=== PATIENT | female | born 1980 | race Caucasian/White ===

== ENCOUNTER 2016-09-11 16:48 | Emergency (ER) | payer OTHER ==
--- NOTE | ~2016-09-11 | CT4 ---
[facility] A Service of [facility] & [facility] RADIOLOGY TEXT RESULTS PATIENT: ESTRADA CLARKE LOCATION: SED : 80 UNIT #: [id number] AGE: [address]: SUHAS RECINOS SEX: F ORDER DR: [id number] [place] [id number] E MR#: [id number] #: [id number] NAME: ESTRADA CLARKE. : 1980 SEX: F STUDY DATE/TIME: 09/11/2016 17:17 UNIT: SED ROOM: STUDY DESCRIPTION: CT Abd and Pelv Wo Cont Attending Physician: Sage Recinos Referring Physician: Abdulkadir Calabrese M.D. Ordering Physician: Sage Recinos Primary Care Physician: No Primary Care Physician MEDICAL IMAGING REPORT This report is preliminary unless electronic signature is present. EXAM CT abdomen and pelvis without contrast; 09/11/2016. HISTORY 36-year-old female with right flank pain and fever for [address] abdomen and pelvis, 12/14/07, and 02/06/2007. TECHNIQUE Helical scan performed through the abdomen and pelvis without oral or IV contrast. Coronal and sagittal reformatted images. This CT exam was performed with one or more of the following radiation dose reduction techniques: automatic exposure control, adjustment of mA and/or kV according to patient size, and iterative reconstruction. FINDINGS Visualized lung bases are unremarkable. The liver, spleen, pancreas, and both adrenal glands are within normal limits. Gallbladder surgically absent. Bilateral nephrocalcinosis is again noted with multiple bilateral nonobstructing, intrarenal calculi. No obstructing ureteral stones. However, there is minimal prominence of the right ureter and there is mild right perinephric inflammatory stranding. The findings may suggest a recently passed right-sided urinary tract stone. No stones are seen within the urinary bladder. Abdominal aorta normal in course and caliber. Small bowel is unremarkable without obstruction. Appendix is surgically absent. Colon unremarkable. No free fluid or free air in the abdomen. The urinary bladder, uterus, and adnexa are unremarkable. Trace amount of free pelvic fluid, likely physiologic. No acute bony abnormality. [facility]. [facility] A Service of [facility] & [facility] RADIOLOGY TEXT RESULTS PATIENT: ESTRADA CLARKE LOCATION: [facility] [place] : [birth year] UNIT #: [id number] AGE: [address]: SUHAS RECINOS SEX: F ORDER DR: IMPRESSION 1. Bilateral nephrocalcinosis with multiple nonobstructing bilateral intrarenal calculi. No definite obstructing ureteral stones identified. However, there is mild prominence of the right ureter, and mild right perinephric inflammatory stranding. This could suggest a recently passed right-sided urinary tract stone. No stones are seen within urinary bladder. Superimposed right-sided pyelonephritis s not excluded on this unenhanced exam. 2. Status post cholecystectomy and appendectomy. 3. Trace free pelvic fluid, likely physiologic. Dictated by... Man Malave M.D. THIS IS AN ELECTRONICALLY VERIFIED REPORT Man Malave M.D. at 09/12/2016 6:13 PM [email or web address] TD: 09/11/2016 20:52 JOB #: [id number] MEDICAL IMAGING REPORT Page 1 of 1
[~2016-09-11 16:48] MED LIST: ALLEVE; BACTRIM DS TABL1 TAB PO; CERTAGEN PO; K-DUR20 ME1 PO; KETOPROFEN PO; NAPROXEN PO; NO MEDICATIONS; PRENATAL MULITV1 TAB PO
[2016-09-11 17:04] LABS: URINE SOURCE CLEAN CATCH
[2016-09-11 17:07] LABS: URINE BILIRUBIN NEG (NEG); URINE BLOOD 2+ (NEG); URINE COLOR YELLOW; URINE GLUCOSE NEG (NORM); URINE KETONE NEG (NEG); URINE LEUKOCYTE ESTERASE 1+ (NEG); URINE NITRATE NEG (NEG); URINE PROTEIN NEG (NEG)
[2016-09-11 17:08] LABS: MICRO INDICATED? YES; URINE APPEARANCE SL HAZY
[2016-09-11 17:11] LABS: URINE BACTERIA 2+ (NEG); URINE SQUAMOUS EPITHELIAL CELL MODERATE /[HPF]; URINE TRANSITIONAL EPI CELLS OCCAS /[HPF]
[2016-09-11 17:28] LABS: BASOPHIL# 0.1 X10e3 (0-0.3); BASOPHIL% 0.4 % (0-2.5); DIFF IND NO; EOSINOPHIL% 0.1 % (0.0-7.0); HEMATOCRIT 36.9 % (35.0-45.0); HEMOGLOBIN 12.7 gm/dL (12.0-16.0); LYMPHOCYTE# 0.8 X10e3 (1.0-3.5); LYMPHOCYTE% 6.2 % (17.0-45.0); MEAN CELL VOLUME 91.1 FL (83-96); MEAN CORPUSCULAR HEMOGLOBIN 31.2 PG (28-34); MEAN CORPUSCULAR HGB CONC 34.3 g/dL (30-36); MEAN PLATELET VOLUME 8.6 FL (6.5-11.5); MONOCYTE# 0.9 X10e3 (0-1.0); MONOCYTE% 6.7 % (3.0-12.0); NEUTROPHIL# 11.7 X10e3 (1.5-7.1); NEUTROPHIL% 86.6 % (40-75); PLATELET COUNT 183 X10e3 (140-420); RED BLOOD COUNT 4.05 X10e (3.90-5.30); RED CELL DISTRIBUTION WIDTH 12.9 % (11.0-15.5); WHITE BLOOD COUNT 13.5 X10e3 (4.0-10.5)
[2016-09-11 17:48] LABS: ALBUMIN SERUM 4.2 g/dL (3.5-5.0); BILIRUBIN,TOTAL 2.5 mg/dL (0.2-2.0); CALCIUM SERUM 8.9 mg/dL (8.4-10.2); CREATININE SERUM 0.6 mg/dL (0.6-1.4); GLOM FILT RATE Estimated 117.3 mL/min (>60); POTASSIUM 3.3 mmol/L (3.5-5.1); PROTEIN TOTAL SERUM 7.6 g/dL (6.0-8.3)
== END 2016-09-11 19:26 | disposition home or self-care (01) ==
LOC: SED 16:48
PROVIDERS: Physician Assistant
DX: N10 Acute pyelonephritis (principal); Z90.49 Acquired absence of other specified parts of digestive tract; F17.210 Nicotine dependence, cigarettes, uncomplicated
CPT/HCPCS: 74176; 80053; 81003; 84703; 85025; 96365; 96375; 99284; J0696; J1885; J2405